=== PATIENT | female | born 1980 | race Caucasian/White ===

== ENCOUNTER 2018-05-24 21:57 | Emergency (ER) | payer OTHER ==
[~2018-05-24] VITALS: Ht 160 cm; Wt 68.0 kg
[~2018-05-24 21:57] MED LIST: BACTRIM DS TAB1 EACH PO; VICODIN 5-5001 EACH PO
[2018-05-24] MEDS ORDERED: NOHOMEMEDICATIONS (22:05)
[2018-05-24 22:36] LABS: ABSOLUTE BASOPHILS 0.1 thou/uL (0.0-0.2); ABSOLUTE EOSINOPHILS 0.3 thou/uL (0.0-0.7); ABSOLUTE LYMPHOCYTES 2.9 thou/uL (0.8-5.3); ABSOLUTE MONOCYTES 0.5 thou/uL (0.0-1.2); ABSOLUTE NEUTROPHILS 4.1 thou/uL (1.6-8.1); BASOPHILS 1.1 %; EOSINOPHILS 4.1 %; HEMOGLOBIN 13.2 gm/dL (12.0-15.0); LYMPHOCYTES 36.7 %; MCH 31.9 pg (26.0-34.0); MCHC 33.8 g/dL (28.0-37.0); MCV 94.2 fL (80.0-100.0); MONOCYTES 6.3 %; MPV 10.1 fl. (7.2-11.1); NUCLEATED RBCS 0 /100WBC; PLATELET COUNT* 193 thou/uL (150-400); POLYS 51.8 %; RBC 4.14 mil/uL (4.20-5.00); RDW-CV 13.6 % (10.5-14.5); WBC 7.9 thou/uL (4.0-11.0)
[2018-05-24 22:39] LABS: ANION GAP 9 mmol/L (7-16); BUN 15 mg/dL (7-18); CALCIUM 8.9 mg/dL (8.5-10.1); CHLORIDE 104 mmol/L (98-107); CO2 28 mmol/L (21-32); CREATININE 0.7 mg/dL (0.6-1.3); GLUCOSE 111 mg/dL (70-99); POTASSIUM 3.3 mmol/L (3.5-5.1); SODIUM 141 mmol/L (136-145)
[2018-05-24 22:47] LABS: PROTIME 9.6 Seconds (9.20-11.50)
[2018-05-24 22:50] LABS: ALKALINE PHOSPHATASE 70 U/L (46-116); LIPASE 129 U/L (73-393); NT-PRO BRAIN NAT PEPTIDE 26 pg/mL (<300); SGOT 19 U/L (15-37); SGPT 28 U/L (30-65); TOTAL BILIRUBIN 0.3 mg/dL (<0.1-1.0); TOTAL PROTEIN 7.2 g/dL (6.4-8.2); TROPONIN-I LEVEL <0.06 ng/mL (<0.06)
[2018-05-24] MEDS ORDERED: CARAFATE 1 GM TA1 GM PO (23:14)
[2018-05-24] MEDS ORDERED: ZOFRAN ODT4 MG PO (23:14)
[2018-05-24] MEDS ORDERED: PEPCID20 MG PO (23:14)
[2018-05-24 23:22] VITALS: BP 111/64
--- NOTE | 2018-05-25 09:51 | EKG ---
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
== END 2018-05-24 23:24 | disposition home or self-care (01) ==
LOC: M.ERS 21:57
PROVIDERS: Emergency Medicine
DX: R07.89 Other chest pain (principal); F17.210 Nicotine dependence, cigarettes, uncomplicated; Z88.6 Allergy status to analgesic agent; Z90.710 Acquired absence of both cervix and uterus

== ENCOUNTER 2018-08-29 10:03 | Emergency (ER) | payer OTHER ==
[~2018-08-29] VITALS: Ht 157.5 cm; Wt 67.6 kg
[~2018-08-29 10:03] MED LIST changes: +CARAFATE 1 GM TA1 GM PO; +NOHOMEMEDICATIONS; +PEPCID20 MG PO; +ZOFRAN ODT4 MG PO
[2018-08-29] MEDS ORDERED: ZOFRAN ODT4 MG PO (11:30)
[2018-08-29 11:41] VITALS: BP 114/71
== END 2018-08-29 11:43 | disposition home or self-care (01) ==
LOC: M.ERS 10:03
DX: S09.90XA Unspecified injury of head, initial encounter (principal); Z90.49 Acquired absence of other specified parts of digestive tract; Z90.710 Acquired absence of both cervix and uterus; Z88.5 Allergy status to narcotic agent; W20.8XXA Other cause of strike by thrown, projected or falling object, initial encounter; Y93.89 Activity, other specified; Y92.89 Other specified places as the place of occurrence of the external cause; Y99.8 Other external cause status

== ENCOUNTER 2018-08-31 09:33 | Emergency (ER) | payer OTHER ==
[~2018-08-31] VITALS: Ht 157.5 cm; Wt 68.0 kg
[2018-08-31 09:37] VITALS: BP 118/69
[2018-08-31] MEDS ORDERED: NORCO 5-325 TA1 EACH PO (09:58)
== END 2018-08-31 10:12 | disposition home or self-care (01) ==
LOC: M.ERS 09:33
DX: S06.0X0A Concussion without loss of consciousness, initial encounter (principal); R11.2 Nausea with vomiting, unspecified; Z90.710 Acquired absence of both cervix and uterus; Z90.49 Acquired absence of other specified parts of digestive tract; Z88.6 Allergy status to analgesic agent; X58.XXXA Exposure to other specified factors, initial encounter; Y93.89 Activity, other specified; Y92.89 Other specified places as the place of occurrence of the external cause; Y99.8 Other external cause status

== ENCOUNTER 2019-05-11 09:49 | Emergency (ER) | payer OTHER ==
[~2019-05-11] VITALS: Ht 160 cm; Wt 69.4 kg
[~2019-05-11 09:49] MED LIST changes: +NORCO 5-325 TA1 EACH PO
[2019-05-11] MEDS ORDERED: CYMBALTA30 MG PO (10:04)
[2019-05-11 10:31] LABS: ABSOLUTE BASOPHILS 0.1 thou/uL (0.0-0.2); ABSOLUTE EOSINOPHILS 0.3 thou/uL (0.0-0.7); ABSOLUTE LYMPHOCYTES 1.6 thou/uL (0.8-5.3); ABSOLUTE MONOCYTES 0.6 thou/uL (0.0-1.2); ABSOLUTE NEUTROPHILS 5.1 thou/uL (1.6-8.1); EOSINOPHILS 3.4 %; HEMATOCRIT 39.8 % (37.0-47.0); HEMOGLOBIN 13.6 gm/dL (12.0-15.0); LYMPHOCYTES 21.6 %; MCH 32.4 pg (26.0-34.0); MCHC 34.1 g/dL (28.0-37.0); MCV 95.1 fL (80.0-100.0); MONOCYTES 7.6 %; MPV 9.9 fl. (7.2-11.1); NUCLEATED RBCS 0 /100WBC; PLATELET COUNT* 143 thou/uL (150-400); POLYS 66.4 %; RBC 4.19 mil/uL (4.20-5.00); RDW-CV 13.5 % (10.5-14.5); WBC 7.6 thou/uL (4.0-11.0)
[2019-05-11 10:39] LABS: CALCIUM 8.7 mg/dL (8.5-10.1); CREATININE 0.7 mg/dL (0.6-1.3); POTASSIUM 3.9 mmol/L (3.5-5.1)
[2019-05-11 10:41] LABS: PROTIME 9.9 Seconds (9.20-11.50)
[2019-05-11 10:44] LABS: ALBUMIN 3.7 g/dL (3.4-5.0); TOTAL BILIRUBIN 0.3 mg/dL (<0.1-1.0); TOTAL PROTEIN 6.8 g/dL (6.4-8.2)
[2019-05-11] MEDS ORDERED: CARAFATE1 GM/10 ML PO (11:26)
[2019-05-11] MEDS ORDERED: ONDANSETRON HCL4 M2 PO (11:27)
[2019-05-11] MEDS ORDERED: LIDOCAINE VISC100 ML PO (11:27)
[2019-05-11 11:57] VITALS: BP 114/79
== END 2019-05-11 11:59 | disposition home or self-care (01) ==
LOC: M.ERS 09:49
PROVIDERS: Nurse Practitioner Family
DX: F45.8 Other somatoform disorders (principal); F17.200 Nicotine dependence, unspecified, uncomplicated; Z88.5 Allergy status to narcotic agent; Z90.710 Acquired absence of both cervix and uterus; Z90.49 Acquired absence of other specified parts of digestive tract; Z90.89 Acquired absence of other organs

== ENCOUNTER 2020-05-31 07:28 | Emergency (ER) | payer OTHER ==
[~2020-05-31] VITALS: Ht 157.5 cm; Wt 65.8 kg
[~2020-05-31 07:28] MED LIST changes: +CARAFATE1 GM/10 ML PO; +CYMBALTA30 MG PO; +LIDOCAINE VISC100 ML PO; +ONDANSETRON HCL4 M2 PO
[2020-05-31 07:51] LABS: ABSOLUTE BASOPHILS 0.1 thou/uL (0.0-0.2); ABSOLUTE EOSINOPHILS 0.2 thou/uL (0.0-0.7); ABSOLUTE LYMPHOCYTES 1.7 thou/uL (0.8-5.3); ABSOLUTE MONOCYTES 0.5 thou/uL (0.0-1.2); ABSOLUTE NEUTROPHILS 4.5 thou/uL (1.6-8.1); EOSINOPHILS 3.5 %; HEMOGLOBIN 13.7 gm/dL (12.0-15.0); MCHC 34.3 g/dL (28.0-37.0); MCV 96.2 fL (80.0-100.0); MONOCYTES 6.6 %; MPV 9.3 fl. (7.2-11.1); NUCLEATED RBCS 0 /100WBC; PLATELET COUNT* 187 thou/uL (150-400); POLYS 64.9 %; RBC 4.15 mil/uL (4.20-5.00); RDW-CV 13.4 % (10.5-14.5)
[2020-05-31] MEDS ORDERED: MELOXICAM15 MG PO (08:00)
[2020-05-31] MEDS ORDERED: CYCLOBENZAPRINE5 MG PO (08:01)
[2020-05-31] MEDS ORDERED: OMEPRAZOLE40 MG PO (08:01)
[2020-05-31 08:03] LABS: CALCIUM 8.2 mg/dL (8.5-10.1); CREATININE 0.8 mg/dL (0.6-1.3); POTASSIUM 3.6 mmol/L (3.5-5.1)
[2020-05-31 08:04] LABS: URINE BLOOD 3+ (Negative); URINE CLARITY CLEAR; URINE COLOR YELLOW; URINE GLUCOSE-RANDOM NEGATIVE (Negative); URINE KETONES NEGATIVE (Negative); URINE LEUKOCYTES-REFLEX NEGATIVE (Negative); URINE NITRITE-REFLEX NEGATIVE (Negative); URINE PROTEIN 1+ (Negative); URINE SPECIFIC GRAVITY >= 1.030 (1.005-1.030); URINE UROBILINOGEN 0.2 E.U./dl (0.2-1.0)
[2020-05-31 08:06] LABS: ICTOTEST (BILI CONFIRMATORY) Negative (Negative); URINE BILIRUBIN 1+ (Negative)
[2020-05-31 08:07] LABS: ALBUMIN 3.7 g/dL (3.4-5.0); TOTAL BILIRUBIN 0.2 mg/dL (<0.1-1.0); TOTAL PROTEIN 6.7 g/dL (6.4-8.2)
[2020-05-31 08:16] LABS: CASTS None Seen /LPF (None Seen); CRYSTALS None Seen /LPF (None Seen); MUCUS 0-3 Light strn/LPF (None Seen); SQUAMOUS 4-10 Moderate /LPF (0-3); URINE RBC >20 Many /HPF (0-2); URINE WBC-REFLEX 0-5 Rare /HPF (0-5)
[2020-05-31] MEDS ORDERED: CIPROFLOXACIN500 M1 PO (08:45)
[2020-05-31] MEDS ORDERED: FLOMAX0.4 MG PO (08:45)
[2020-05-31] MEDS ORDERED: PERCOCET 5-3251 EACH PO (08:45)
[2020-05-31 09:28] VITALS: BP 118/70
--- NOTE | 2020-05-31 11:23 | EKG ---
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1980 Requested By: Virgilio Larson Order Number: [id number] MD: Estuardo Leahy Measurements Intervals [place] Rate: 76 P: 54 [place]: 178 QRS: 3 QRSD: 97 T: 43 QT: 403 QTc: 454 Interpretive Statements Sinus rhythm Compared to ECG 05/24/2018 22:03:59 No significant changes Electronically Signed On 05-31-2020 11:23:26 CDT by Estuardo Leahy [email or web address] <ELECTRONICALLY SIGNED> By: Estuardo Leahy MD, [facility] 05/31/20 1123 6 6 Estuardo Leahy MD, [facility] /EPI
== END 2020-05-31 09:31 | disposition home or self-care (01) ==
LOC: M.ERS 07:28
PROVIDERS: Family Medicine
DX: N20.0 Calculus of kidney (principal); Z90.49 Acquired absence of other specified parts of digestive tract; Z90.710 Acquired absence of both cervix and uterus; Z90.89 Acquired absence of other organs; Z88.5 Allergy status to narcotic agent

== ENCOUNTER 2021-09-21 15:58 | Emergency (ER) | payer OTHER ==
[~2021-09-21] VITALS: Ht 157.5 cm; Wt 63.5 kg
[~2021-09-21 15:58] MED LIST changes: +CIPROFLOXACIN500 M1 PO; +CYCLOBENZAPRINE5 MG PO; +FLOMAX0.4 MG PO; +MELOXICAM15 MG PO; +OMEPRAZOLE40 MG PO; +PERCOCET 5-3251 EACH PO
[2021-09-21] MEDS ORDERED: CEPHALEXIN500 MG PO (17:19)
[2021-09-21 17:36] VITALS: BP 138/90
== END 2021-09-21 17:37 | disposition home or self-care (01) ==
LOC: M.ERS 15:58
DX: S90.121A Contusion of right lesser toe(s) without damage to nail, initial encounter (principal); Z20.822 Contact with and (suspected) exposure to COVID-19; J06.9 Acute upper respiratory infection, unspecified; F17.210 Nicotine dependence, cigarettes, uncomplicated; Z90.710 Acquired absence of both cervix and uterus; Z90.49 Acquired absence of other specified parts of digestive tract; Z90.89 Acquired absence of other organs; Z79.899 Other long term (current) drug therapy; Z88.5 Allergy status to narcotic agent; X58.XXXA Exposure to other specified factors, initial encounter; Y93.89 Activity, other specified; Y92.89 Other specified places as the place of occurrence of the external cause; Y99.8 Other external cause status